=== PATIENT | female | born 1980 | race Caucasian/White ===

== ENCOUNTER → 2024-05-31 | Outpatient (CLI) | payer BC, SELFPAY ==
--- NOTE | 2024-05-31 10:15 | XR_ITS ---
Examination: Breast ultrasound complete, bilateral Date and time of exam: May 31, 2024 1314 hours INDICATIONS: Mammogram April 27, 2024 14 mm oval mass indistinct margins upper outer right breast Technique: Real-time grayscale ultrasonographic imaging bilateral breasts, including all 4 quadrants as well as nipple retroareolar and axillary regions. Findings: Sonographic images right breast Retroareolar oval mass circumscribed 15 x 5 x 14 mm Sonographic images left breast No cystic or solid mass IMPRESSION: BI-RADS Category 3: Probably benign findings Recommend 1 additional 6 month right breast sonogram follow-up to document stability of retroareolar right breast nodule described above
--- NOTE | 2024-05-31 13:28 | XR_ITS ---
Examination: Diagnostic digital mammography, unilateral, right Computer aided detection 3-D breast Tomosynthesis, unilateral Date and time of exam: May 31, 2024 1333 hours INDICATIONS: Mammogram April 27, 2024 14 mm oval mass indistinct margins upper outer right breast posterior depth Technique: Nonmagnified MLO, CC views of the right breast have been obtained, reconstructed from 3-D Tomosynthesis images. R2 computer aided detection program utilized for evaluation of suspicious masses and/or abnormal calcifications. 3-D Tomosynthesis images obtained. Findings: The breast is heterogeneously dense, which may obscure small masses Focal asymmetry remains upper outer right breast, in addition right breast sonogram today describes retroareolar oval mass 15 mm Impression: BI-RADS category 3: Probably benign findings One additional 6 month right mammogram follow-up is needed
== END | disposition home or self-care (01) ==
PROVIDERS: PCP Physician Assistant; Referring Provider Physician Assistant; Visit Provider Physician Assistant
DX: R92.331 Mammographic heterogeneous density, right breast (principal); N63.11 Unspecified lump in the right breast, upper outer quadrant; N63.41 Unspecified lump in right breast, subareolar
CPT/HCPCS: 76641; 77061; 77065; G0279